=== PATIENT | male | born 1950 | race Caucasian/White ===

== ENCOUNTER 2021-06-30 12:10 | Observation (INO) | payer OTHER, MEDICARE ==
[~2021-06-30] VITALS: Ht 182.9 cm; Wt 127.0 kg
[~2021-06-30 12:10] MED LIST: ACTOS30 MG PO; AUGMENTIN 875-1 EACH PO; COREG 25MG TAB25 MG PO; DILTIAZEM 24HR240 M1 PO; DOXYCYCLINE HY100 MG PO; JANUMET 50-1,01 EACH PO; JANUMET XR 50-1 EAC1 PO; LANTUS INS100 UTS/M1 SC; LANTUS100 UNIT/1 SC; LOVASTATIN10 MG PO; MITIGARE0.6 MG PO; PROAIR DIGIHAL90 MCG INH; ZERVIATE1 EACH PO; ZESTRIL 40 MG T40 MG GT; ZYRTEC10 MG PO
[2021-06-30 14:00] LABS: HEMOGLOBIN 11.6 gm/dl (14.0-17.5); WHITE BLOOD COUNT 12.7 K/UL (4.5-11.0)
[2021-06-30 20:00] LABS: HEMOGLOBIN 10.8 gm/dl (14.0-17.5); RED BLOOD COUNT 3.69 M/UL (4.20-5.50)
[2021-06-30 20:07] LABS: WHITE BLOOD COUNT 7.8 K/UL (4.5-11.0)
[2021-07-01 04:16] LABS: HEMOGLOBIN 10.5 gm/dl (14.0-17.5); RED BLOOD COUNT 3.55 M/UL (4.20-5.50); WHITE BLOOD COUNT 6.4 K/UL (4.5-11.0)
[2021-07-01] MEDS ORDERED: EXCEDRIN EXTRA1 EACH PO (07:29)
[2021-07-01] MEDS ORDERED: ZESTRIL 40 MG T40 MG PO (07:29)
[2021-07-01] MEDS ORDERED: VOLTAREN EC 7575 MG PO (10:32)
[2021-07-01] MEDS ORDERED: FLOMAX 0.4 MG0.4 MG PO (10:33)
[2021-07-01] MEDS ORDERED: TYLENOL 8 HOUR650 MG PO (11:59)
[2021-07-01] MEDS ORDERED: DILTIAZEM 24HR240 M1 PO (12:00)
[2021-07-01] MEDS ORDERED: JANUMET XR 50-1 EACH PO (12:00)
[2021-07-01] MEDS ORDERED: COREG 25MG TAB25 MG PO (12:00)
[2021-07-01] MEDS ORDERED: PRESERVISION A1 EAC2 PO (12:01)
[2021-07-01] MEDS ORDERED: MITIGARE0.6 MG PO (12:01)
[2021-07-01] MEDS ORDERED: METHOCARBAMOL500 MG PO (12:04)
[2021-07-01 12:28] LABS: HEMOGLOBIN 10.2 gm/dl (14.0-17.5); RED BLOOD COUNT 3.48 M/UL (4.20-5.50); WHITE BLOOD COUNT 5.2 K/UL (4.5-11.0)
[2021-07-01] MEDS ORDERED: IBUPROFEN IB200 MG PO (14:36)
== END 2021-07-01 16:30 | disposition home or self-care (01) ==
LOC: ER1 12:10 → CDU 16:31
PROVIDERS: Emergency Medicine; ADMIT Surgery
DX: S30.1XXA Contusion of abdominal wall, initial encounter (principal); I10 Essential (primary) hypertension; E11.9 Type 2 diabetes mellitus without complications; Z20.822 Contact with and (suspected) exposure to COVID-19; V87.7XXA Person injured in collision between other specified motor vehicles (traffic), initial encounter; Y93.89 Activity, other specified
CPT/HCPCS: 71045; 73502; 73564; 73590; 80053; 81001; 85025; 85027; 96374; 99284; G0378; J2405; J7030; Q9967; U0002